=== PATIENT | female | born 1995 | race Two or more races ===

== ENCOUNTER 2022-03-19 21:02 | Inpatient (IN) | payer OTHER ==
[~2022-03-19] VITALS: Ht 160 cm; Wt 1.8 kg
[2022-03-19] MEDS ORDERED: PRENATAL TABLE1 EAC1 PO (23:59)
[2022-03-19] MEDS ORDERED: CHILDREN'S ASPI81 MG PO (23:59)
[2022-03-20] MEDS ORDERED: SYNTHROID100 MCG PO
[2022-03-20] MEDS ORDERED: NIFEDIPINE20 MG PO (00:01)
== END 2022-03-25 13:41 | disposition home or self-care (01) | DRG 788 ==
LOC: LDR 21:02 → O/R 03-22 10:59 → LDR 03-22 20:06 → OB/GYN 03-24 08:36
PROVIDERS: ADMIT Obstetrics & Gynecology; ATTEND Obstetrics & Gynecology
PROC: 4A1HXCZ Monitoring of Products of Conception, Cardiac Rate, External Approach (ICD-10-PCS; 2022-03-19)
PROC: BY4FZZZ Ultrasonography of Third Trimester, Single Fetus (ICD-10-PCS; 2022-03-20)
PROC: 10D00Z1 Extraction of Products of Conception, Low, Open Approach (ICD-10-PCS; principal; 2022-03-22 11:15)
DX: O26.843 Uterine size-date discrepancy, third trimester (principal); O60.14X0 Preterm labor third trimester with preterm delivery third trimester, not applicable or unspecified; O14.14 Severe pre-eclampsia complicating childbirth; O36.8130 Decreased fetal movements, third trimester, not applicable or unspecified; O99.824 Streptococcus B carrier state complicating childbirth; O10.02 Pre-existing essential hypertension complicating childbirth; Z3A.34 34 weeks gestation of pregnancy; Z3A.36 36 weeks gestation of pregnancy; Z37.0 Single live birth; Z20.822 Contact with and (suspected) exposure to COVID-19